=== PATIENT | female | born 1975 | race Caucasian/White ===

== ENCOUNTER → 2020-06-09 | Outpatient (CLI) | payer OTHER ==
[~2020-06-09] MED LIST: CLARITIN10 M2 PO; DICLOFENAC GEL 1% TOP; LOW DOSE ASPIRI81 MG PO; PROAIR HFA8.5 GM INH; PROTONIX40 MG PO; SINGULAIR10 MG PO
[2020-06-09 09:24] LABS: HEMOGLOBIN 13.4 gm/dl (12.3-15.3); RED BLOOD COUNT 4.2 M/UL (4.00-5.10); WHITE BLOOD COUNT 7.8 K/UL (4.5-11.0)
[2020-06-09 09:39] LABS: BUN/CREATININE RATIO 14 (0-10)
== END ==
LOC: OPSV2 08:22
PROVIDERS: Orthopaedic Surgery
DX: Z01.818 Encounter for other preprocedural examination (principal); S43.421A Sprain of right rotator cuff capsule, initial encounter; M77.8 Other enthesopathies, not elsewhere classified; X58.XXXA Exposure to other specified factors, initial encounter
CPT/HCPCS: 36415; 71046; 80048; 85025; 93005

== ENCOUNTER → 2020-06-10 | Day surgery (SDC) | payer OTHER ==
[~2020-06-10] VITALS: Ht 167.6 cm; Wt 70.8 kg
== END | disposition home or self-care (01) ==
LOC: OR 07:31
PROVIDERS: Orthopaedic Surgery
PROC: 0PHC04Z Insertion of Internal Fixation Device into Right Humeral Head, Open Approach (ICD-10-PCS; 2020-06-10)
PROC: 3E0T3BZ Introduction of Anesthetic Agent into Peripheral Nerves and Plexi, Percutaneous Approach (ICD-10-PCS; 2020-06-10)
PROC: 0RBJ4ZZ Excision of Right Shoulder Joint, Percutaneous Endoscopic Approach (ICD-10-PCS; principal; 2020-06-10 11:00)
DX: S43.431A Superior glenoid labrum lesion of right shoulder, initial encounter (principal); M70.51 Other bursitis of knee, right knee; S42.91XK Fracture of right shoulder girdle, part unspecified, subsequent encounter for fracture with nonunion; M65.811 Other synovitis and tenosynovitis, right shoulder; M75.101 Unspecified rotator cuff tear or rupture of right shoulder, not specified as traumatic; M25.811 Other specified joint disorders, right shoulder; M25.411 Effusion, right shoulder; K21.9 Gastro-esophageal reflux disease without esophagitis; J44.9 Chronic obstructive pulmonary disease, unspecified; F17.210 Nicotine dependence, cigarettes, uncomplicated; F41.9 Anxiety disorder, unspecified; F32.9 Major depressive disorder, single episode, unspecified; G89.18 Other acute postprocedural pain; Z79.899 Other long term (current) drug therapy; Z79.891 Long term (current) use of opiate analgesic; Z79.82 Long term (current) use of aspirin; Z20.822 Contact with and (suspected) exposure to COVID-19; W19.XXXD Unspecified fall, subsequent encounter; Y92.012 Bathroom of single-family (private) house as the place of occurrence of the external cause
CPT/HCPCS: C1713; J0171; J0690; J1100; J1885; J2001; J2250; J2370; J2405; J2704; J2710; J2795; J3010; J7120

== ENCOUNTER 2021-09-06 23:13 | Emergency (ER) | payer OTHER ==
[2021-09-07] MEDS ORDERED: IBUPROFEN600 MG PO (02:53)
[2021-09-07] MEDS ORDERED: PERCOCET 5/325 T1 EA PO (02:53)
== END 2021-09-07 03:07 | disposition home or self-care (01) ==
LOC: ER1 23:13
DX: M54.16 Radiculopathy, lumbar region (principal); F17.210 Nicotine dependence, cigarettes, uncomplicated
CPT/HCPCS: 72100; 99283